=== PATIENT | female | born 1950 | race Caucasian/White ===

== ENCOUNTER 2017-06-16 21:55 | Emergency (ER) | payer MEDICAID ==
[~2017-06-16] VITALS: Ht 167.6 cm; Wt 170.0 kg
[2017-06-16] MEDS ORDERED: IBUPROFEN 600MG TABLET PO STA (22:19)
[2017-06-16 22:43] LABS: HEMATOCRIT. 39.5 % (36.0-48.0); HEMOGLOBIN. 12.4 g/dL (12.0-16.0); MEAN CORPUSCULAR HEMOGLOBIN 27.5 pg (28.0-32.0); MEAN CORPUSCULAR VOLUME 87.4 fL (81.0-99.0); MEAN PLATELET VOLUME 7.6 fl (7.4-10.4); PLATELET 247 x1000/uL (130-400); RED BLOOD CELL COUNT 4.52 mill/uL (4.2-5.4)
[2017-06-16 22:48] LABS: CHLORIDE 99 mEq/L (98-107)
[2017-06-16 22:56] LABS: CARBON DIOXIDE 29 mEq/L (21-32)
[2017-06-16 23:18] LABS: PLATELET ESTIMATE NORMAL
[2017-06-16] MEDS ORDERED: SODIUM CHLORIDE 0.9% 1,000 ML IV ONE (23:45)
[2017-06-16] MEDS ORDERED: CEFTRIAXONE 1 G PREMIX 50 ML IV ONE (23:45)
[2017-06-17] MEDS ORDERED: ALBUTEROL (0.5%) 2.5MG/0.5ML NEB HHN ONE (03:45)
[2017-06-17 03:56] VITALS: BP 130/55
== END 2017-06-17 04:29 | disposition short-term general hospital (02) ==
LOC: ER 22:08
DX: L89.892 Pressure ulcer of other site, stage 2 (principal); L89.151 Pressure ulcer of sacral region, stage 1; N19 Unspecified kidney failure; E87.5 Hyperkalemia; F17.200 Nicotine dependence, unspecified, uncomplicated; J44.9 Chronic obstructive pulmonary disease, unspecified; E66.01 Morbid (severe) obesity due to excess calories; Z88.5 Allergy status to narcotic agent
CPT/HCPCS: 36415; 80053; 85025; 87040; 94640; 96365; 96366; 99285; J0696; J7030; J7611; Z7610

== ENCOUNTER 2021-06-17 11:31 | Inpatient (IN) | payer MEDICARE, MEDICAID ==
[~2021-06-17] VITALS: Ht 165.1 cm; Wt 134.7 kg
[2021-06-17] MEDS ORDERED: MORPHINE SULFATE 2 MG/ML CPJ (NOT FOR IM USE) IV NR (12:00)
[2021-06-17] MEDS ORDERED: LABETALOL 5MG/ML SYR 20 MG/4 ML SYRINGE IV PRN (12:00)
[2021-06-17 12:15] LABS: BASOPHILS % 0.6 % (0.0-2.0); EOSINOPHILS % 0.4 % (0.0-5.0); HEMATOCRIT. 35.4 % (36.0-48.0); HEMOGLOBIN. 11.6 g/dL (12.0-16.0); LYMPHOCYTES % 7.1 % (20.0-50.0); MEAN CORPUSCULAR HEMOGLOBIN 26.7 pg (28.0-32.0); MEAN CORPUSCULAR VOLUME 81.5 fL (81.0-99.0); MEAN PLATELET VOLUME 7.8 fl (7.4-10.4); NEUTROPHILS % 83.9 % (40.0-76.0); PLATELET 296 x1000/uL (130-400); RED BLOOD CELL COUNT 4.34 mill/uL (4.2-5.4)
[2021-06-17 12:23] LABS: CHLORIDE 105 mEq/L (98-107)
[2021-06-17 12:25] LABS: PROTHROMBIN TIME 10.4 sec (9.6-11.0)
[2021-06-17 12:28] LABS: ETHANOL BLOOD < 10 mg/dL
[2021-06-17 12:30] LABS: LDL CHOLESTEROL 62 mg/dL (5-100)
[2021-06-17 14:09] LABS: CLARITY URINE CLOUDY (CLEAR); COLOR URINE YELLOW (YELLOW); KETONES URINE TRACE (NEGATIVE); LEUKOCYTE ESTERASE URINE 1+ (NEGATIVE); NITRITE URINE POSITIVE (NEGATIVE); OCCULT BLOOD URINE 3+ (NEGATIVE); PROTEIN URINE 3+ (NEGATIVE); SPECIFIC GRAVITY URINE 1.012 (1.005-1.030); UROBILINOGEN URINE 0.2 E.U./dL (0.2-1.0)
[2021-06-17 14:30] LABS: *AMPHETAMINES SCREEN URINE NEGATIVE (NEGATIVE); *BENZODIAZEPINES SCREEN URINE NEGATIVE (NEGATIVE); *COCAINE SCREEN URINE NEGATIVE (NEGATIVE); METHADONE URINE SCREEN NEGATIVE (NEGATIVE); OPIATES URINE SCREEN NEGATIVE (NEGATIVE)
[2021-06-17] MEDS ORDERED: KETOROLAC 30MG/ML VIAL IV ONE ×2 (14:30→20:15)
[2021-06-17] MEDS ORDERED: LORAZEPAM 2MG/ML CPJ IV ONE (14:30)
[2021-06-17 14:31] LABS: *BARBITURATES SCREEN URINE NEGATIVE (NEGATIVE); CANNABINOID URINE SCREEN NEGATIVE (NEGATIVE); PHENCYCLIDINE URINE SCREEN NEGATIVE (NEGATIVE)
[2021-06-17] MEDS ORDERED: SODIUM CHLORIDE 0.9% 1,000 ML IV ONE (16:15)
[2021-06-17] MEDS ORDERED: CEFTRIAXONE 1 G PREMIX 50 ML IV SCH (16:15)
[2021-06-18] VITALS (7 sets, daily range): BP systolic 129–167; BP diastolic 65–86
[2021-06-18] MEDS ORDERED: CLONIDINE 0.1MG TABLET PO PRN (01:00)
[2021-06-18] MEDS ORDERED: GUAIFENESIN 200MG/10ML SUGAR FREE UDC PO PRN (01:00)
[2021-06-18] MEDS ORDERED: ACETAMINOPHEN 325MG TABLET PO PRN (01:00)
[2021-06-18] MEDS ORDERED: IPRATROPIUM/ALBUTEROL 0.5-3(2.5)MG/3ML NEB HHN PRN (01:00)
[2021-06-18] MEDS ORDERED: MAGNESIUM/ALUMINUM HYDROXIDE/SIMETHICONE 30ML UDC PO PRN (01:00)
[2021-06-18] MEDS ORDERED: DOCUSATE SODIUM 100MG CAPSULE PO PRN (01:00)
[2021-06-18] MEDS ORDERED: ONDANSETRON HCL 4MG/2ML INJ IV PRN (01:00)
[2021-06-18] MEDS ORDERED: NALOXONE HCL 0.4MG/ML VIAL IV PRN (01:30)
[2021-06-18] MEDS: METHYLPREDNISOLONE SOD SUCC 125 MG/2 ML VIAL IV SCH ×4 (02:00→21:28)
[2021-06-18] MEDS: ENOXAPARIN 40MG/0.4ML SYR SUBCUT SCH ×2 (02:00→21:32)
[2021-06-18] MEDS ORDERED: DEXTROSE 50% WATER 50ML SYRINGE IV PRN (05:15)
[2021-06-18] MEDS ORDERED: GABA-532 PO ×2 (05:20→05:49)
[2021-06-18] MEDS ORDERED: DULO60CA44 PO (05:49)
[2021-06-18] MEDS ORDERED: GABA-533 PO (05:49)
[2021-06-18] MEDS ORDERED: OMEP20TA15 PO (05:49)
[2021-06-18] MEDS ORDERED: FURO-151 PO (05:49)
[2021-06-18] MEDS ORDERED: AMLO10TA4 PO (05:49)
[2021-06-18] MEDS ORDERED: ABIL5 PO (05:49)
[2021-06-18] MEDS ORDERED: HYDR-4133 PO (05:49)
[2021-06-18] MEDS ORDERED: CETI10CA2 PO (05:49)
[2021-06-18] MEDS ORDERED: LIP40 PO (05:49)
[2021-06-18] MEDS ORDERED: ACET-2708 PO (05:49)
[2021-06-18] MEDS ORDERED: METO1TAB26 MT (05:49)
[2021-06-18] MEDS ORDERED: ASPI-986 PO (05:49)
[2021-06-18] MEDS: BLOOD SUGAR DIAGNOSTIC STRIP TEST SCH ×4 (06:42→21:16)
[2021-06-18] MEDS: INSULIN LISPRO 100 UNITS/ML SUBCUT SCH ×4 (06:43→21:30)
[2021-06-18] MEDS ORDERED: AMLODIPINE 10MG TABLET PO SCH (09:00)
[2021-06-18] MEDS: IPRATROPIUM/ALBUTEROL 0.5-3(2.5)MG/3ML NEB HHN SCH ×3 (09:02→21:07)
[2021-06-18] MEDS: HYDROCODONE/ACETAMINOPHEN 5/325MG TABLET PO PRN ×3 (10:13→21:24)
[2021-06-18] MEDS ORDERED: GABAPENTIN 300MG CAPSULE PO SCH (10:30)
[2021-06-18] MEDS: GABAPENTIN 300MG CAPSULE PO SCH ×2 (12:35→18:24)
[2021-06-18] MEDS ORDERED: HYDRALAZINE HCL 10MG TABLET PO SCH (13:00)
[2021-06-18] MEDS ORDERED: CEFTRIAXONE 1 G PREMIX 50 ML IV SCH (16:30)
[2021-06-18] MEDS ORDERED: FUROSEMIDE 40MG TABLET PO SCH (17:15)
[2021-06-18] MEDS ORDERED: ARIPIPRAZOLE 5MG TABLET PO SCH (18:00)
[2021-06-18] MEDS ORDERED: ATORVASTATIN CALCIUM 40MG TABLET PO SCH (18:00)
[2021-06-19] MEDS ORDERED: DULOXETINE HCL 60MG DR CAPSULE PO SCH (06:40)
== END 2021-06-18 22:11 | disposition short-term general hospital (02) | DRG 347 ==
LOC: ER 11:31 → 7EST 22:03 → ENRESERV 06-18 01:58
PROVIDERS: ADMIT Hospitalist; ATTEND Hospitalist
DX: M54.9 Dorsalgia, unspecified (principal); E11.22 Type 2 diabetes mellitus with diabetic chronic kidney disease; Z99.81 Dependence on supplemental oxygen; N39.0 Urinary tract infection, site not specified; I12.9 Hypertensive chronic kidney disease with stage 1 through stage 4 chronic kidney disease, or unspecified chronic kidney disease; Z20.822 Contact with and (suspected) exposure to COVID-19; J44.9 Chronic obstructive pulmonary disease, unspecified; N18.9 Chronic kidney disease, unspecified; Z88.2 Allergy status to sulfonamides; Z88.8 Allergy status to other drugs, medicaments and biological substances; Z79.899 Other long term (current) drug therapy
CPT/HCPCS: 36415; 71045; 80053; 80305; 80320; 81003; 82962; 83036; 83605; 83721; 84484; 85025; 87077; 87186; 87426; 93005; 93970; 94640; 99285; J0696; J1650; J1815; J1885; J2060; J2270; J2930; J7040; G0480